=== PATIENT | male | born 1955 | race Caucasian/White ===

== ENCOUNTER 2021-01-08 19:20 | Emergency (ER) | payer MEDICARE ==
[~2021-01-08 19:20] MED LIST: ASPIRIN EC81 MG PO; ATORVASTATIN CA20 MG PO; FLEXERIL 10 MG10 MG PO; IBUPROFEN800 MG PO; PLAVIX 75 MG TA75 MG PO
[2021-01-08 20:42] LABS: HEMOGLOBIN 16.1 gm/dl (14.0-17.5); RED BLOOD COUNT 5.21 M/UL (4.20-5.50); WHITE BLOOD COUNT 5.6 K/UL (4.5-11.0)
[2021-01-08 21:06] LABS: BUN/CREATININE RATIO 10 (0-10)
== END 2021-01-08 22:22 | disposition home or self-care (01) ==
LOC: ER1 19:20
PROVIDERS: Family Medicine
DX: R26.81 Unsteadiness on feet (principal); F17.200 Nicotine dependence, unspecified, uncomplicated; Z86.73 Personal history of transient ischemic attack (TIA), and cerebral infarction without residual deficits
CPT/HCPCS: 70450; 71045; 80053; 82550; 82553; 83874; 84484; 85025; 85610; 85730; 93005; 99284